=== PATIENT | male | born 2000 | race Caucasian/White ===

== ENCOUNTER 2024-09-06 10:47 | Emergency (ER) | payer BC, OTHER ==
[2024-09-06 11:34] VITALS: PULSE 103; RESP 18
--- NOTE | 2024-09-06 12:14 | ED ---
General Adult HPI - General Chief complaint: ENT Stated complaint: left ear pain Time Seen by Provider: 09/06/24 11:41 Source: patient, RN notes reviewed Mode of arrival: ambulatory Limitations: no limitations - History of Present Illness Initial comments: This is a 24-year-old male with recurrent otitis media presenting to the emergency department for complaint of left ear discharge, pain, left-sided facial and neck swelling. He states that over the past 5 to 7 days he has been experiencing pain of the left ear with intermittent serous status drainage and bloody discharge. He began to notice facial swelling on the left side of his face yesterday where he went to urgent care was prescribed amoxicillin. He is presenting for second opinion. He states that the swelling has progressed down to his neck. He denies dysphagia, dyspnea, hearing acuity changes of the left ear, or mastoid tenderness. Reports fever over the past few days. - Related Data Previous Rx's Medication Instructions Recorded Amoxic-Pot Clav 875-125Mg 1 tab PO Q12HR #20 tab 09/06/24 [Augmentin 875-125] Allergies Allergy/AdvReac Type Severity Reaction Status Date / Time No Known Allergies Allergy Verified 09/06/24 11:28 Review of Systems ROS Statement: Those systems with pertinent positive or pertinent negative responses have been documented in the HPI. ROS Other: All systems not noted in ROS Statement are negative. 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 Absent: scleral icterus, conjunctival injection, periorbital swelling Expanded Ear exam: Present: normal external inspection TM/Canal exam: Erythema: Left TM, Bulging: Left TM, Effusion: Left TM Throat exam: negative: tonsillar erythema, tonsillomegaly Neck exam: Present: normal inspection, full ROM, lymphadenopathy. Absent: ten derness, meningismus Respiratory exam: Present: normal lung sounds bilaterally. Absent: respiratory distress, wheezes, rales, rhonchi, stridor Cardiovascular Exam: Present: regular rate, normal rhythm, normal heart sounds. Absent: systolic murmur, diastolic murmur, rubs, gallop, clicks GI/Abdominal exam: Present: soft, normal bowel sounds. Absent: distended, tenderness, guarding, rebound, rigid Extremities exam: Present: normal inspection, full ROM, normal capillary refill. Absent: tenderness, pedal edema, joint swelling, calf tenderness Course Vital Signs 09/06/24 09/06/24 11:29 12:27 Temperature 98.2 F 98.1 F Pulse Rate 103 H 103 H Respiratory 18 18 Rate Blood Pressure 132/82 110/77 O2 Sat by Pulse 97 98 Oximetry Medical Decision Making - Medical Decision Making Was pt. sent in by a medical professional or institution (, [facility], [facility], urgent care, hospital, or assisted...) When possible be specific @ -No Did you speak to anyone other than the patient for history (EMS, parent, family, police, friend...)? What history was obtained from this source @ -No Did you review nursing and triage notes (agree or disagree)? Why? @ -I reviewed and agree with nursing and triage notes Were old charts reviewed (outside hosp., previous admission, EMS record, old EKG, old radiological studies, urgent care reports/EKG's, assisted records)? Report findings @ -No old charts were reviewed Differential Diagnosis (chest pain, altered mental status, abdominal pain women, abdominal pain men, vaginal bleeding, weakness, fever, dyspnea, syncope, headache, dizziness, GI bleed, back pain, seizure, CVA, palpatations, mental health, musculoskeletal)? @ -Otitis media, otitis externa, malignant otitis externa, mastoiditis, this list is not all inclusive EKG interpreted by me (3pts min.). @ -None X-rays interpreted by me (1pt min.). @ -None done CT interpreted by me (1pt min.). @ -None done U/S interpreted by me (1pt. min.). @ -None done What testing was considered but not performed or refused? (CT, X-rays, U/S, labs)? Why? @ -None What meds were considered but not given or refused? Why? @ -None Did you discuss the management of the patient with other professionals (professionals i.e. [facility], [facility], lab, RT, psych nurse, social worker assistant, yeast pumper, teacher, guest relation officer, field case manager)? Give summary @ -No Was smoking cessation discussed for >3mins.? @ -No Was critical care preformed (if so, how long)? @ -No Were there social determinants of health that impacted care today? How? (Homelessness, low income, unemployed, alcoholism, drug addiction, transportation, low edu. Level, literacy, decrease access to med. care, senior care, rehab)? @ -No Was there de-escalation of care discussed even if they declined (Discuss DNR or withdrawal of care, Hospice)? DNR status @ -No What co-morbidities impacted this encounter? (DM, HTN, Smoking, COPD, CAD, Cancer, CVA, ARF, Chemo, Hep., AIDS, mental health diagnosis, sleep apnea, morbid obesity)? @ -None Was patient admitted / discharged? Hospital course, mention meds given and route, prescriptions, significant lab abnormalities, going to OR and other pertinent info. @ -Discharge. 24-year-old male presenting with left ear pain and left-sided facial and neck swelling. Vitals are stable. Exam remarkable for left TM erythema, purulence, bulging. There is no mastoid tenderness, canal tenderness, panel tenderness on exam. Patient is overall well-appearing and nontoxic. No difficulties in breathing or swallowing. Patient will be sent a prescription for Augmentin in addition to topical antibiotic drops with concern for otitis externa and lymphadenopathy subsequently. Recommend the patient follow-up with primary care provider for further evaluation return back to emergency department for any new or worsening symptoms. Discussed with Dr. Adams Undiagnosed new problem with uncertain prognosis? @ -No Drug Therapy requiring intensive monitoring for toxicity (Heparin, Nitro, Insulin, Cardizem)? @ -No Were any procedures done? @ -No Diagnosis/symptom? @ -Otitis externa, lymphadenopathy Acute, or Chronic, or Acute on Chronic? @ -Acute Uncomplicated (without systemic symptoms) or Complicated (systemic symptoms)? @ -Uncomplicated Side effects of treatment? @ -No Exacerbation, Progression, or Severe Exacerbation? @ -No Poses a threat to life or bodily function? How? (Chest pain, [place], [place], pneumonia, PE, COPD, DKA, ARF, appy, cholecystitis, CVA, Diverticulitis, Homicidal, Suicidal, threat to staff... and all critical care pts) @ -No Disposition Clinical Impression: Otitis media, Lymphadenopathy of head and neck region Disposition: HOME SELF-CARE Condition: Good Instructions (If sedation given, give patient instructions): Ear Infection (ED) Additional Instructions: Please return to the Emergency Department if symptoms worsen or any other concerns. Prescriptions: Amoxic-Pot Clav 875-125Mg [Augmentin 875-125] 1 tab PO Q12HR #20 tab Is patient prescribed a controlled substance at d/c from ED?: No Referrals: Kenzie Austin DO [Primary Care Provider] - 1-2 days Time of Disposition: 12:21
[2024-09-06 12:29] VITALS: BP 110/77; TEMP 98.1
[2024-09-06] MEDS: CIPROFLOXACIN-DEXAMETH 0.3-0.1% DROPS 7.5 ML BTL LEFT EAR STA (12:38)
== END 2024-09-06 12:48 | disposition home or self-care (01) ==
LOC: EC 10:47
DX: H66.92 Otitis media, unspecified, left ear (principal); R59.1 Generalized enlarged lymph nodes
CPT/HCPCS: 99283